=== PATIENT | male | born 1975 | race Caucasian/White ===

== ENCOUNTER 2024-04-06 20:13 | Emergency (ER) | payer BC ==
[2024-04-06 20:35] VITALS: BP 124/85; PULSE 73
[2024-04-06] MEDS ORDERED: Amoxicillin 250 MG/5 ML Susp 150 ML Bottle PO ONE (20:50)
[2024-04-06] MEDS: Amoxicillin 500 MG Cap PO ONE (20:57)
[2024-04-06] MEDS: Lidocaine 1% with EPINEPHrine 1:100,000 20 ML MDV ONE (21:01)
[2024-04-06] MEDS: Lidocaine 1% with EPINEPHrine 1:100,000 20 ML MDV INJECT ONE (21:08)
[2024-04-06] MEDS: Acetaminophen 500 MG Tab PO ONE (21:28)
== END 2024-04-06 21:49 | disposition home or self-care (01) ==
LOC: KA.ED 20:13
DX: S01.511A Laceration without foreign body of lip, initial encounter (principal); Z88.8 Allergy status to other drugs, medicaments and biological substances; Z79.01 Long term (current) use of anticoagulants; Z79.899 Other long term (current) drug therapy; W26.8XXA Contact with other sharp object(s), not elsewhere classified, initial encounter
CPT/HCPCS: 12013; 99283; A9270-GY; J3490